=== PATIENT | female | born 1995 | race African-American/Black ===

== ENCOUNTER 2024-12-10 09:20 | Emergency (ER) | payer SELFPAY ==
[2024-12-10 09:22] VITALS: BP 111/74
--- NOTE | 2024-12-10 10:45 | ED.GENMED ---
History of Present Illness
General
Chief Complaint: Depression
Source: patient
Exam Limitations: none
Time Seen by Provider: 12/10/24 10:29
Nursing documentation reviewed up to this point in time: agreed with
History of Present Illness
History of Present Illness:
29-year-old female past medical history of anxiety depression presenting to the emergency department today seeking psychiatric evaluation. She claims that she has been feeling very depressed. She has been depressed for over a decade denies taking
any current medications. Her mood has been low more recently. Denies any thoughts of harming herself or others. She is seeking to start potential medications at this point. Denies any medical symptoms.
Review of Systems
Review of Systems
Allergies reviewed?: Yes
All Other Systems: ROS reviewed and negative except as documented in HPI and ROS
Phy Exam
Physical Exam
Physical Exam:
GENERAL: Alert , in no apparent distress
EYE: pupils equal and reactive
NECK: Supple, no significant adenopathy.
ENT: o/p clr, mmm.
CARDIAC: Regular rate and rhythm .
LUNGS: Clear breath sounds bilaterally, no acute respiratory distress, no wheezes/rales/rhonchi
ABDOMEN: Soft, without focal tenderness, no r/g, no cvat
NEUROLOGICAL: Alert and oriented, no focal neuro deficits
SKIN: Warm and dry, skin intact.
MUSCULOSKELETAL: No edema, well perfused.
PSYCH: Normal and appropriate interaction.
Course
Vital Signs
Initial and Last Documented VS:
Initial Vital Signs
Temp Pulse Resp BP Pulse Ox
99.5 F 97 16 111/74 100
12/10/24 09:22 12/10/24 09:22 12/10/24 09:22 12/10/24 09:22 12/10/24 09:22
Last Documented Vital Signs
Temp Pulse Resp BP Pulse Ox
99.5 F 97 16 111/74 100
12/10/24 09:22 12/10/24 09:22 12/10/24 09:22 12/10/24 09:22 12/10/24 09:22
MDM/Problems Addressed
MDM/Problems Addressed:
29-year-old female with concerns of depressive symptoms. No thoughts of harming self or others. Patient does not meet any 302 criteria. Patient is stable to follow-up with psychiatry. Patient sent to [facility] crisis.
*Critical Care Note
Total Time (30-74mins, 75-104mins- exclusive of procedures): Not Applicable
ED Attending Note
-
Portions of this chart may have been created with voice recognition software.� Occasional wrong word or��sound alike� substitutions may have occurred due to the inherent limitations of voice recognition software.
Discharge Plan
Departure
Patient Disposition: [facility]
Date of Disposition: 12/10/24
Time of Disposition: 10:45
Patient with high blood pressure during this ER visit?: No
Condition: Good
Covid-19: Not Applicable
Discharge Problem:
Depression
Instructions: Depression, Adult (DC)
Activity Restrictions/Additional Instructions:
You came to the emergency department with concerns of depressive symptoms. Please go to [facility] to help facilitate psychiatric care.
Interventions
Interventions:
*Risk Screen - Suicide Last Done: 12/10/24 09:20
Discharge Date and Time
Print Language: ARABIC
== END 2024-12-10 11:50 ==
LOC: EMR 09:20
PROVIDERS: EMERGENCY PHYSICIAN Student in an Organized Health Care Education/Training Program
DX: F32.A Depression, unspecified (principal)
CPT/HCPCS: 99283